=== PATIENT | female | born 1965 | race Caucasian/White ===

== ENCOUNTER 2016-06-05 11:40 | Emergency (ER) ==
[2016-06-05] MEDS ORDERED: DECADRON IM ONE (12:57)
[2016-06-05] MEDS ORDERED: DUONEB (A & A) INH ONE (12:57)
--- NOTE | 2016-06-05 13:07 | PROVIDER DOCUMENTATION ---
HPI-General Adult - General Chief Complaint: Flu Symptoms Stated Complaint: SORE THROAT/COUGH Time Seen by Provider: 06/05/16 12:15 Source: patient Allergies/Adverse Reactions: Patient Allergies Allergy/AdvReac Type Severity Reaction Status Date / Time moxifloxacin HCl * Allergy Severe ANAPHYLAXIS Verified 06/05/16 12:29 [From Avelox] Home Medications: Home Medication List Medication Instructions Recorded Confirmed Last Taken Type Amoxicillin/Pot Clavulanate 875 mg PO Q12HR #14 tablet 06/05/16 Unknown Rx [Augmentin] Buspirone [Buspar] 10 mg PO BID 06/05/16 06/05/16 06/05/16 04:30 History Clonazepam [Klonopin] 0.5 mg PO BID 06/05/16 06/05/16 06/05/16 11:15 History Clonazepam [Klonopin] 1 mg PO HS 06/05/16 06/05/16 06/05/16 04:30 History Escitalopram Oxalate [Lexapro] 20 mg PO QHS 06/05/16 06/05/16 06/04/16 History Escitalopram [Lexapro] 10 mg PO QAM 06/05/16 06/05/16 06/05/16 04:30 History Estradiol 2 mg PO DAILY 06/05/16 06/05/16 06/04/16 History Fluconazole [Diflucan] 150 mg PO DAILY #2 tablet 06/05/16 Unknown Rx Lacosamide [Vimpat] 200 mg PO BID 06/05/16 06/05/16 06/05/16 04:30 History Levetiracetam [Keppra] 2,000 mg PO BID 06/05/16 06/05/16 06/05/16 04:30 History Levothyroxine [Synthroid] 150 microgm PO DAILY 06/05/16 06/05/16 06/05/16 04:30 History Loratadine/Pse E.r. 24 Hr 1 each PO DAILY #20 tablet 06/05/16 Unknown Rx [Claritin-D 24 Hr] Methylprednisolone [Medrol Dosepak] 4 mg PO DIRECTED #1 package 06/05/16 Unknown Rx Nitrofurantoin Macrocrystal 50 mg PO BID 06/05/16 06/05/16 06/05/16 04:30 History [Macrodantin] Primidone 50 mg PO TID 06/05/16 06/05/16 06/05/16 11:15 History Topiramate [Topamax] 200 mg PO BID 06/05/16 06/05/16 06/05/16 04:30 History - History of Present Illness -Gen Adult Nature of Presenting Problems: Pt is a 50 y/o F c chief complaint of rhinorrhea, sore throat, cough, congestion , and subjective fever c body aches at home over the past week. On arrival, pt is in minimal distress and afebrile. She has a h/o chronic migraine headaches. Review of Systems - Adult - REVIEW OF SYSTEMS - ADULT Constitutional: reports: no symptoms reported. denies: chills, fatique Eyes: reports: no symptoms reported. denies: blurred vision, double vision Ears, Nose, Mouth & Throat: reports: sinus problem, nose pain. denies: ear pain Cardiovascular: reports: no symptoms reported. denies: chest pain, irregular heart rate Respiratory: reports: cough, pleurisy, wheezing. denies: shortness of breath Gastrointestinal: reports: no symptoms reported. denies: abdominal pain, nausea Genitourinary: reports: no symptoms reported. denies: dysuria, hematuria Musculoskeletal: reports: no symptoms reported. denies: joint pain, joint swelling Integumentary: reports: no symptoms reported. denies: itching, rash Neurological: reports: no symptoms reported. denies: numbness, paresthesia Psychiatric: reports: no symptoms reported. denies: anxiety, emotional problems Endocrine: reports: no symptoms reported. denies: cold intolerance, heat intolerance Hematologic/Lymphatic: reports: no symptoms reported. denies: blood clots, low blood count Allergic/Immunologic: reports: no symptoms reported. denies: allergic reactions , food allergy All Other Systems: Reviewed and Negative Past History - Adult - PAST MEDICAL HISTORY-ADULT Review of Records: reports: Old Records Reviewed, Nursing Assessment Review, Medications Reviewed, Social history reviewed & non-contributory. Major Childhood Illnesses: reports: denies history Cardiovascular: reports: denies history Respiratory: reports: denies history Gastrointestinal: reports: denies history Obstetrical/Gynecological: reports: denies history Genitourinary: reports: denies history Musculoskeletal: reports: denies history Neurological: reports: headaches/migraines Endocrine/Immune: reports: denies history Other Conditions: reports: denies history - FAMILY HISTORY Family History: reviewed, not pertinent Physical Exam-General - PHYSICAL EXAM-ADULT Initial Vital Signs Reviewed: Yes - CONSTITUTIONAL General Appearance: appears well, alert, no apparent distress - EYES Eyes: PERRL/EOMI, pink conjunctivae - HEAD, EARS, NOSE, MOUTH & THROAT HENMT: normocephalic/atraumatic, moist mucous membranes, normal ENT inspection - RESPIRATORY Respiratory: chest non-tender, lungs clear, normal breath sounds - CARDIOVASCULAR Cardiovascular: normal peripheral pulses, regular rate, rhythm, no edema - GASTROINTESTINAL (ABDOMEN) Abdominal Exam: normal bowel sounds, non tender, soft - LYMPHATIC Lymphatic: no adenopathy - MUSCULOSKELETAL Back Exam: normal inspection, no CVA tenderness, no vertebral tenderness Extremity: normal range of motion, non-tender, normal gait - SKIN Integumentary: normal color, normal turgor, warm/dry - NEUROLOGIC Neurologic: grossly normal, no motor/sensory deficits - PSYCHIATRIC Psych/Mental Status: normal mood/affect, normal thought content, normal thought process, oriented x 3 Progress - PLAN OF CARE/RESULTS Progress/Plan/Lab Results: Orders Category Date Time Status CHEST-2 VIEWS [RAD] Stat Exams 06/05/16 12:58 Taken DIRECT STREP Stat Lab 06/05/16 11:34 Completed Flu Swab [INFLUENZA SCREEN A/B] Stat Lab 06/05/16 11:34 Completed Albuterol 2.5MG/Ipratrop 0.5MG [Duoneb (A & A)] Med 06/05/16 12:57 Discontinued 6 ml INH NOW ONE Dexamethasone [Decadron] Med 06/05/16 12:57 Discontinued 10 mg IM NOW ONE Aerosol Treatments Routine Oth 06/05/16 12:58 Completed Aerosol Treatments Stat Oth 06/05/16 12:58 Completed Vital Signs - 24 hr 06/05/16 06/05/16 11:54 13:10 Temperature 97.5 F L Pulse Rate 59 L 76 Respiratory 18 18 Rate Blood Pressure 106/76 O2 Sat by Pulse 100 99 Oximetry FLU SWAB AND STREP SWAB - NEGATIVE - XRAY 1 XRAY Study: Chest Impression: Normal XRAY Interpretation: Solitary pulmonary nodule, LLL, no acute dz Departure - Departure Time of Disposition Order: 13:16 DIAGNOSIS: Solitary pulmonary nodule URI (upper respiratory infection) Qualifiers: URI type: unspecified URI Qualified Code(s): J06.9 - Acute upper respiratory infection, unspecified Disposition: HOME 01 Certified Medical Emergency: Emergent Condition: Stable Additional Instructions: Have repeat chest x-ray in 3 months to evaluate solitary pulmonary nodule on chest x-ray. ED Follow Up Instructions: You have been treated by a care provider in the Emergency Department. These instructions are being provided to you so you can have an understanding of how to care for yourself upon discharge. Upon discharge from the Emergency Department, you are responsible for making arrangements for follow-up care by a physician of your choice. Take all prescribed medications as directed. Return to the Emergency Department immediately for any new or worsening symptoms. You may call the Physician Referral phone number at [phone] to obtain a list of Physicians who are taking new patients. Prescriptions: Amoxicillin/Pot Clavulanate [Augmentin] 875 mg PO Q12HR #14 tablet Loratadine/Pse E.r. 24 Hr [Claritin-D 24 Hr] 1 each PO DAILY #20 tablet Fluconazole [Diflucan] 150 mg PO DAILY #2 tablet Methylprednisolone [Medrol Dosepak] 4 mg PO DIRECTED #1 package Referrals: Vashti Sneed [Primary Care Provider] - Call for Appoint. -1 week Forms: Return to School/Parent Work Instructions: Upper Respiratory Infection, Adult, [id number], Pulmonary Nodule Attestation - Physician/ THOMAS Attestation Patient care was provided by Advanced Practice Provider:: Yes Advanced Practice Provider:: Martínez Fontanez Advanced Practice Provider documentation review:: The Mid-level provider documentation, treatment plan and medical decision making was reviewed by the physician who agrees with all treatment and medical decision making by the MLP.
[2016-06-05 13:44] VITALS: BP 115/78
--- NOTE | 2016-06-05 14:48 | Diag Imaging Result Document ---
PROCEDURE NAME: CHEST-2 VIEWS - 06/05/2016 CHEST X-RAY, TWO VIEWS: COMPARISON: None. FINDINGS: The lungs are clear of infiltrate. Heart size and pulmonary vascularity are normal. No pneumothorax or pleural effusion. There are calcified granulomas in the lingula. There is mild dextro-curvature to the thoracic spine. IMPRESSION: No acute disease.
== END 2016-06-05 13:44 | disposition home or self-care (01) ==
LOC: ED 11:40
DX: J06.9 Acute upper respiratory infection, unspecified (principal); R91.1 Solitary pulmonary nodule; J02.9 Acute pharyngitis, unspecified; R05 Cough; J34.89 Other specified disorders of nose and nasal sinuses; R09.81 Nasal congestion; R50.9 Fever, unspecified; R52 Pain, unspecified; Z79.899 Other long term (current) drug therapy; R06.2 Wheezing; R09.1 Pleurisy; G89.29 Other chronic pain; R51 Headache
CPT/HCPCS: 71020; 87081; 87430; 87804; 94640